=== PATIENT | female | born 2000 | race Caucasian/White ===

== ENCOUNTER 2021-12-01 22:15 | Emergency (ER) | payer BC ==
[2021-12-01] MEDS ORDERED: Ondansetron 4 MG Tab.DIS PO ONE (22:56)
[2021-12-01] MEDS ORDERED: Promethazine 25 MG/ML SDV IM ONE (23:20)
[2021-12-01 23:30] LABS: CORONAVIRUS COVID-19 NAA POSITIVE (NEGATIVE); RESPIRATORY SYNCYTIAL VIR NAA NEGATIVE (NEGATIVE)
[2021-12-01] MEDS ORDERED: Nirmatrelvir/Ritonavir 300 MG/100 MG Dose Pack PO SCH (23:30)
== END 2021-12-01 23:40 | disposition home or self-care (01) ==
LOC: VM.ED 22:15
DX: U07.1 COVID-19 (principal)
CPT/HCPCS: 0241U; 96372; 99283; A9270-GY; J2550